=== PATIENT | male | born 1985 | race African-American/Black ===

== ENCOUNTER 2022-02-13 18:19 | Emergency (ER) | payer BC, SELFPAY ==
[2022-02-13 18:24] VITALS: BP 136/77; PULSE 65; RESP 16; TEMP 35.7; O2SAT 100
--- NOTE | 2022-02-13 18:25 | ED.SKABFB ---
HPI - Skin/Abscess/Foreign Bdy General Chief complaint: Skin/Abscess/Foreign Body Stated complaint: Rash Time Seen by Provider: 02/13/22 18:32 Source: patient Mode of arrival: ambulatory Limitations: no limitations History of Present Illness HPI narrative: 36-year-old male presented for complaint of diffuse rash over body, extreme itching worsening over the past 3 days. He states 3 days ago he was diagnosed with scabies via telehealth, he took the prescribed permethrin cream as directed. Patient is from [place]. He states after applying the med he noticed the rash spread over his body, does not spare any areas. Endorses excoriated genital area as well, denies concern for std. Has not taken anything else for symptoms. Denies lip, tongue, or throat swelling, difficulty breathing or wheezing. 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 States ivermectin helped at that time. MD complaint: rash Related Data Allergies Allergy/AdvReac Type Severity Reaction Status Date / Time No Known Allergies Allergy Verified 02/13/22 18:33 Review of Systems Review of Systems: CONSTITUTIONAL: Denies body aches, fever, chills, or sweats. EYES: Denies visual changes, redness, or discharge. ENT: Denies rhinorrhea, congestion, sore throat, or otalgia. CARDIOVASCULAR: Denies chest pain, palpitations, or edema. RESPIRATORY: Denies cough or dyspnea. GASTROINTESTINAL: Denies abdominal pain, nausea, vomiting, or diarrhea. GENITOURINARY: Endorses excoriated eli area with 'cuts' denies dysuria or hematuria or drainage SKIN: Endorses rash, itching MUSCULOSKELETAL: Denies back pain, joint pain, or myalgia. NEUROLOGIC: Denies headache, numbness, tingling, or weakness. PSYCH: Denies depression or anxiety. PMFSH Comments At time of signature, I have reviewed and agree with nursing past medical, surgical, social and family history unless otherwise noted. Please see nursing chart for further information. There is no relevant family history pertinent to the presenting complaint Exam Narrative: GENERAL: appears uncomfortable in no acute distress. HEAD: Normocephalic, atraumatic. EYES: conjunctivae clear, and EOMI. ENT: Mucous membranes moist. Oropharynx without edema, erythema or lesions. NECK: Supple. No lymphadenopathy CHEST: Clear to auscultation. No respiratory distress. HEART: Regular rate and rhythm. SKIN: Warm, dry. Diffuse erythematous papular rash over entire body surface, crusted lesions between fingers and in umbilicus; no active drainage. areas of linear excoriation to penis and scrotum without drainage or bleeding NEURO: Alert and oriented x3. PSYCH: Normal mood and affect Course Course Emergency Course: Patient is aware of diagnosis, understands and agrees to treatment plan. Anticipatory guidance given. Patient agrees to follow-up as directed and is aware of reasons to seek care at the emergency department. Portions of this record may have been created with voice recognition software Level of Care: Express Care Visit Vital Signs Vital signs: Reviewed MDM - Skin/Abscess/Foreign Bdy MDM Narrative Medical decision making narrative: Does not appear at this time to be erythema multiforme, bullous, SJS, TEN; no evidence at this time to suggest RMSF, endocarditis or Lyme disease Patient looks well, nontoxic; no neurologic signs or symptoms; no headache, photophobia or neck pain; afebrile; appropriate for initial outpatient treatment; discussed the importance of follow-up, patient agrees No soft palate or uvula edema, no tongue, lip edema or other mucosal involvement, no respiratory compromise, no stridor or wheezing, no history of syncope, no hypotension, no nausea, vomiting, or diarrhea. Instructed patient to go to nearest ER immediately for any worsening symptoms including but not limited to: fever, spreading rash, pain, sore throat, headache, dizziness, chest pain, trouble breathing, or any symptoms concerning to
[2022-02-13 18:34] VITALS: BP 136/77; PULSE 65; RESP 16; TEMP 35.7; O2SAT 100
== END 2022-02-13 19:10 | disposition home or self-care (01) ==
PROVIDERS: Emergency Provider Nurse Practitioner Family
DX: B35.6 Tinea cruris (principal); B86 Scabies; T50.905A Adverse effect of unspecified drugs, medicaments and biological substances, initial encounter
CPT/HCPCS: 99213; G0463